=== PATIENT | male | born 1970 | race African-American/Black ===

== ENCOUNTER 2017-05-08 12:46 | Emergency (ER) | payer SELFPAY ==
[~2017-05-08] VITALS: Ht 177.8 cm; Wt 135.0 kg
[2017-05-08 12:54] VITALS: BP 149/89; PULSE 102; RESP 20; TEMP 98.9; O2SAT 92
[2017-05-08] MEDS ORDERED: IPRAAER INH (13:02)
[2017-05-08] MEDS ORDERED: PRED1 PO (13:02)
[2017-05-08] MEDS ORDERED: VENTAER INH ×2 (13:02→15:16)
[2017-05-08] MEDS ORDERED: RESP: ALBUTEROL 2.5 MG/IPRATROPIUM 0.5 MG NEB (SCH) NEB ONE ×4 (13:30→14:30)
[2017-05-08] MEDS ORDERED: methylPREDNISolone SOD SUCC 125 MG/2 ML VIAL IM ONE (13:30)
--- NOTE | 2017-05-08 13:30 | PD ---
HPI Chief Complaint: Respiratory Symptoms Time Seen by Provider: 13:23 Travel History International Travel<30 days: No Contact w/Intl Traveler<30days: No Traveled to known affect area: No History of Present Illness HPI This patient complains of shortness of breath and cough and wheezing. Fairly heavy smoker. Denies fever or chest pain. Symptoms severity is moderate. No alleviating factors. Duration 2 days. No hemoptysis. PFSH Past Medical History COPD: Yes (states chronic bronchitis) Diminished Hearing: No Immunizations Current: Yes Tetanus Vaccination: < 5 Years Influenza Vaccination: No Past Surgical History Surgical History: No Previous Surgery Social History Alcohol Use: No Tobacco Use: Yes Substance Use: No Allergies-Medications (Allergen,Severity, Reaction): Coded Allergies: Sulfa (Verified Allergy, Severe, 05/08/17) Reported Meds & Prescriptions Reported Meds & Active Scripts Active Reported Combivent Respimat Inh (Ipratropium-Albuterol Inh) 20-100 Alf/Act Aero 1 Puff INH QID Ventolin Hfa 18 GM Inh (Albuterol Sulfate) 90 Mcg/Act Aer 2 Puff INH Q6H PRN Prednisone 1 Mg Tab 1 Mg PO DAILY Review of Systems General / Constitutional: No: Fever Eyes: No: Visual changes HENT: No: Headaches Cardiovascular: No: Chest Pain or Discomfort Respiratory: Positive: Cough, Shortness of Breath, Wheezing Gastrointestinal: No: Abdominal Pain Genitourinary: No: Dysuria Musculoskeletal: No: Pain Skin: No Rash Neurologic: No: Weakness Psychiatric: No: Depression Endocrine: No: Polydipsia Hematologic/Lymphatic: No: Easy Bruising Physical Exam Narrative GENERAL: Well-nourished, well-developed patient with active wheezing. SKIN: Focused skin assessment reveals no rash and nodules. Skin is Warm and dry. HEAD: Atraumatic. Normocephalic. EYES: Pupils equal and round. No scleral icterus. No injection or drainage. ENT: No nasal bleeding or discharge. Mucous membranes pink and moist. NECK: Trachea midline. No JVD. CARDIOVASCULAR: Regular rate and rhythm. No murmur appreciated. RESPIRATORY: No accessory muscle use. Diffuse expiratory wheezing without crackles. Equal and symmetric breath sounds GASTROINTESTINAL: Abdomen soft, non-tender, nondistended. Hepatic and splenic margins not palpable. MUSCULOSKELETAL: No obvious deformities. No clubbing. No cyanosis. No edema. NEUROLOGICAL: Awake and alert. No obvious cranial nerve deficits. Motor grossly within normal limits. Normal speech. PSYCHIATRIC: Appropriate mood and affect; insight and judgment normal. Data Data Last Documented VS Vital Signs Date Time Temp Pulse Resp B/P Pulse Ox O2 Delivery O2 Flow Rate FiO2 05/08/17 12:56 20 94 Room Air 05/08/17 12:54 98.9 102 149/89 Orders Chest, Single Ap (05/08/17 ) Methylprednisolone So Succ Inj (Solumedr (05/08/17 13:30) Albuterol-Ipratropium Neb (Duoneb Neb) (05/08/17 13:30) Albuterol-Ipratropium Neb (Duoneb Neb) (05/08/17 13:30) Albuterol-Ipratropium Neb (Duoneb Neb) (05/08/17 13:30) Albuterol-Ipratropium Neb (Duoneb Neb) (05/08/17 14:30) [facility] Medical Decision Making Medical Screen Exam Complete: Yes Emergency Medical Condition: Yes Medical Record Reviewed: Yes Differential Diagnosis COPD, pneumonia, bronchitis, asthma Narrative Course I have reviewed the patient's electronic medical record. Patient presents like asthma or COPD. He says he supposed to be using a breathing inhaler but doesn't have one. I gave him a series of 3 nebulizer treatments I gave him injection of Solu-Medrol I reviewed his chest x-ray which is normal Vital signs are normal including saturation of 97% on room air On reassessment he is breathing much better. His lungs are clear now and I do not hear any wheezing He says he feels a lot better We discussed that he needs to quit smoking. I prescribed him 5 days of prednisone and an inhaler Diagnosis Primary Impression: COPD with acute exacerbation Additional Instructions: The patient was advised to follow up with their physician and return if they worsen. Stop smoking Med/Other Pt SpecificInfo: Prescription(s) given Scripts Prednisone 20 Mg Tab40 Mg PO DAILY #10 TAB Ref 0 Take 40 mg (2 tablets) daily for 5 days Prov:Noel Gabriel MD 05/08/17 Albuterol 18 GM Inh (Ventolin Hfa 18 GM Inh)90 Mcg/Act Aer2 Puff INH Q4H PRN ( SHORTNESS OF BREATH) #1 INHALER Ref 0 Prov:Noel Gabriel MD 05/08/17 Disposition: 01 DISCHARGE HOME Condition: Stable Noel Gabriel MD May 08, 2017 13:30
--- NOTE | 2017-05-08 14:22 | RADRPT ---
EXAM DATE/TIME: 05/08/2017 13:40 [place] COMPARISON: No previous studies available for comparison. INDICATIONS : Chest pain, dyspnea. MEDICAL HISTORY : Bronchitis, chronic. SURGICAL HISTORY : None. ENCOUNTER: Initial ACUITY: 1 day PAIN SCORE: 5/10 LOCATION: Chest. FINDINGS: A single view of the chest demonstrates the lungs to be symmetrically aerated without evidence of mas s, infiltrate or effusion. The cardiomediastinal contours are unremarkable. Osseous structures are intact. CONCLUSION: No evidence of acute cardiopulmonary disease. Ildefonso Dewitt MD on May 08, 2017 at 14:20 Board Certified Radiologist. This report was verified electronically.
[2017-05-08] MEDS ORDERED: PRED20 PO (15:16)
== END 2017-05-08 15:58 | disposition home or self-care (01) ==
LOC: PHED 12:46
DX: J44.1 Chronic obstructive pulmonary disease with (acute) exacerbation (principal); Z72.0 Tobacco use
CPT/HCPCS: 71010; 94640; 94664; 96372; 99284; J2930